=== PATIENT | male | born 1950 | race Caucasian/White ===

== ENCOUNTER 2016-11-26 22:08 | Outpatient (CLI) | payer MEDICARE, OTHER | END 2016-11-26 22:09 | disposition critical access hospital (66) | LOC: EMS 22:08 | PROVIDERS: ATTEND Surgery | DX: R10.2 Pelvic and perineal pain (principal); V28.4XXA Motorcycle driver injured in noncollision transport accident in traffic accident, initial encounter; Y92.410 Unspecified street and highway as the place of occurrence of the external cause | CPT/HCPCS: A0425; A0429 ==

== ENCOUNTER 2016-11-26 23:09 | Emergency (ER) | payer MEDICARE, OTHER ==
--- NOTE | 2016-11-26 23:47 | XRAY Preliminary Report ---
Exam: XR HIP W/PELVIS 2-3V LT IMPRESSION: Normal pelvis and hip radiography. [facility] SITE ID: [id number]
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
[2016-11-27] MEDS ORDERED: KETOROLAC 60 MG/2 ML VIAL IM STA (00:33)
[2016-11-27 00:37] VITALS: BP 130/92
[2016-11-27] MEDS ORDERED: KETOROLAC 60 MG/2 ML VIAL ONE (00:41)
== END 2016-11-27 00:35 | disposition home or self-care (01) ==
LOC: EDUNIT# → ED 23:09
DX: M53.3 Sacrococcygeal disorders, not elsewhere classified (principal); V28.4XXA Motorcycle driver injured in noncollision transport accident in traffic accident, initial encounter; Y92.488 Other paved roadways as the place of occurrence of the external cause; I10 Essential (primary) hypertension; E78.00 Pure hypercholesterolemia, unspecified; I20.9 Angina pectoris, unspecified; K74.60 Unspecified cirrhosis of liver
CPT/HCPCS: 96372; 99283

== ENCOUNTER 2019-10-15 14:13 | Outpatient (CLI) | payer MEDICARE | END 2019-10-15 14:14 | disposition home or self-care (01) | LOC: COV 14:13 | PROVIDERS: ATTEND Family Medicine | DX: R50.9 Fever, unspecified (principal); M79.10 Myalgia, unspecified site; R53.83 Other fatigue; R19.7 Diarrhea, unspecified; R09.81 Nasal congestion; Z20.828 Contact with and (suspected) exposure to other viral communicable diseases ==

== ENCOUNTER 2019-10-16 12:36 | Emergency (ER) | payer MEDICARE ==
[2019-10-16 12:54] VITALS: BP 145/81
[2019-10-16 13:13] LABS: BILIRUBIN,URINE NEGATIVE (NEGATIVE); GLUCOSE, URINE (UA) NEGATIVE (NEGATIVE); KETONES,URINE (UA) NEGATIVE (NEGATIVE); LEUKOCYTE ESTERASE, URINE LARGE (NEGATIVE); NITRITE,URINE POSITIVE (NEGATIVE); OCCULT BLOOD,URINE LARGE (NEGATIVE); PROTEIN,URINE 30 mg/dL (NEGATIVE); UROBILINOGEN,URINE 1 (NORMAL) E.U./dL (NORMAL)
[2019-10-16 13:14] LABS: CLARITY,URINE CLOUDY (CLEAR)
[2019-10-16 13:19] LABS: BACTERIA,URINE Few /HPF (None Seen); RBC,URINE TNTC /HPF (0-5); SQUAMOUS EPITHELIAL CELL,UR NONE SEEN (<= Few)
[2019-10-16] MEDS ORDERED: LIDOCAINE 1% 2 ML VIAL MC ONE (13:23)
[2019-10-16] MEDS ORDERED: cefTRIAXone 1 GM VIAL IM STA (13:23)
--- NOTE | 2019-10-16 13:28 | ED Physician Documentation ---
History of Present Illness - Stated complaint Stated Complaint: MALE - Chief complaint Chief Complaint: General - History obtained from History obtained from: Patient - History of Present Illness Timing: How many weeks ago (1) Pain level max: 4 Pain level now: 3 - Additonal information Additional information: 69-year-old male with dysuria and urine frequency for the past week. Feels like he cannot completely empty his bladder. Has had occasional chills. Some nausea but no vomiting. He has had a bladder stone removed in the past. No back pain. No abdominal pain. Worse with urination, nothing makes it better. Review of Systems Constitutional: denies: Fever, Chills GI: denies: Vomiting, Diarrhea Skin: denies: Rash Musculoskeletal: denies: Neck pain, Back pain PD PAST MEDICAL HISTORY - Past Medical History Cardiovascular: Hypertension, High cholesterol, Angina Respiratory: Shortness of breath Endocrine/Autoimmune: None GI: Cirrhosis : None HEENT: Chronic vision loss, Chronic hearing loss Psych: None Musculoskeletal: None Derm: None - Past Surgical History Past Surgical History: Yes General: Liver surgery HEENT: Tonsil/Adenoidectomy Derm: Skin cancer surgery - Present Medications Home Medications: Ambulatory Orders Medication Instructions Recorded Confirmed Furosemide [Lasix] 40 mg PO BID #14 tablet 10/28/14 Furosemide [Lasix] 40 mg PO DAILY 10/28/14 10/28/14 Ledipasvir/Sofosbuvir [Harvoni 1 tab PO DAILY 10/28/14 10/28/14 90-400 mg Tablet] Ribavirin 600 mg PO DAILY 10/28/14 10/28/14 Spironolactone 100 mg PO DAILY 10/28/14 10/28/14 Cefdinir 300 mg PO BID #20 capsule 10/16/19 - Allergies Allergies/Adverse Reactions: Allergies Allergy/AdvReac Type Severity Reaction Status Date / Time amoxicillin AdvReac Emesis Verified 10/16/19 12:54 - Social History Does the pt smoke?: No Smoking Status: Never smoker Does the pt drink ETOH?: No Does the pt have substance abuse?: No - Immunizations Immunizations are current?: Yes - POLST Patient has POLST: No PD ED PE NORMAL - Vitals Vital signs reviewed: Yes - General General: Alert and oriented X 3, No acute distress - HEENT HEENT: Moist mucous membranes - Neck Neck: Supple, no meningeal sign - Cardiac Cardiac: RRR, Strong equal pulses - Respiratory Respiratory: No respiratory distress, Clear bilaterally - Abdomen Abdomen: Soft, Non tender, Non distended - Male Male : Other (Normal prostate exam. No tenderness or bogginess. Otherwise normal exam) - Back Back: No CVA TTP, No spinal TTP - Derm Derm: Warm and dry - Neuro Neuro: Alert and oriented X 3 - Psych Psych: Normal mood, Normal affect Results - Vitals Vitals: Vital Signs - 24 hr 10/16/19 12:48 Temperature 37.1 C Heart Rate 87 Respiratory 20 Rate Blood Pressure 145/81 H O2 Saturation 96 Oxygen O2 Source Room air - Labs Labs: Laboratory Tests 10/16/19 13:06 Urine Color YELLOW Urine Clarity CLOUDY Urine pH 6.0 Ur Specific [place] 1.025 Urine Protein 30 H Urine Glucose (UA) NEGATIVE Urine Ketones NEGATIVE Urine Occult Blood LARGE H Urine Nitrite POSITIVE H Urine Bilirubin NEGATIVE Urine Urobilinogen 1 (NORMAL) Ur Leukocyte Esterase LARGE H Urine RBC TNTC H Urine WBC >25 H Ur Squamous Epith Cells NONE SEEN Urine Bacteria Few Ur Microscopic Review INDICATED Urine Culture Comments INDICATED PD MEDICAL DECISION MAKING - ED course Complexity details: reviewed results, re-evaluated patient, considered differential, d/w patient ED course: Patient with a UTI. Also has a 2 cm bladder stone on the. We will place him on antibiotics and have him follow-up closely with his urologist. He has had a bladder stone removed in the past. Patient is well-appearing, nontoxic. Afeb rile. No evidence of sepsis. Patient counseled regarding signs and symptoms for which I believe and urgent re-evaluation would be necessary. Patient with good understanding of and agreement to plan and is comfortable going home at this time This document was made in part using voice recognition software. While efforts are made to proofread this document, sound alike and grammatical errors may o ccur. Departure - Departure Disposition: 01 Home, Self Care Clinical Impression: Bladder stone UTI (urinary tract infection) Qualifiers: Urinary tract infection type: acute cystitis Hematuria presence: with hematuria Qualified Code(s): N30.01 - Acute cystitis with hematuria Condition: Good Instructions: ED UTI Cystitis Male Follow-Up: your,doctor in 1 week [Other] Prescriptions: Cefdinir 300 mg PO BID #20 capsule Comments: Take all antibiotics until gone. Return if you worsen. Return especially for fevers, vomiting or any other new or worsening symptoms. You need to see urology to have a bladder stone removed. It is approximately 2 cm. Discharge Date/Time: 10/16/19 13:36
== END 2019-10-16 13:36 | disposition home or self-care (01) ==
LOC: ED 12:36
DX: N30.01 Acute cystitis with hematuria (principal); N21.0 Calculus in bladder
CPT/HCPCS: 81001; 81003; 87086; 87181; 96372; 99283; 99284

== ENCOUNTER 2019-12-28 18:30 | Outpatient (CLI) | payer MEDICARE | END 2019-12-28 18:31 | disposition home or self-care (01) | LOC: COV 18:30 | PROVIDERS: ATTEND Family Medicine | DX: Z20.828 Contact with and (suspected) exposure to other viral communicable diseases (principal) ==

== ENCOUNTER 2021-02-17 01:21 | Emergency (ER) | payer MEDICARE ==
--- NOTE | 2021-02-17 01:32 | ED Physician Documentation ---
PD HPI HEADACHE - Stated complaint Stated Complaint: GORDON, CONGESTION - Chief complaint Chief Complaint: General - History obtained from History obtained from: Patient - History of Present Illness Timing - onset: Yesterday Timing - details: Gradual onset Pain level now: 5 Location: Global Associated symptoms: Fever (Tmax 100.1). No: Nausea, Vomiting, Weakness Contributing factors: No: Anticoagulated, Possible carbon monoxide Similar symptoms before: Has not had sx before Recently seen: Not recently seen - Additional information Additional information: c/o 24 hours of gradual onset, gradually worsening generalized headache, chest congestion, moist cough. Tmax 100.1 He is COVID vaccinated but has not received a booster shot Review of Systems Constitutional: reports: Fever (Tmax 100.1), Fatigue Throat: denies: Sore throat Cardiac: reports: Reviewed and negative Respiratory: reports: Cough. denies: Dyspnea, Hemoptysis, Wheezing GI: reports: Reviewed and negative Neurologic: reports: Headache. denies: Generalized weakness, Focal weakness, Numbness PD PAST MEDICAL HISTORY - Past Medical History Cardiovascular: Hypertension, High cholesterol, Angina Respiratory: Shortness of breath Endocrine/Autoimmune: None GI: Cirrhosis : None HEENT: Chronic vision loss, Chronic hearing loss Psych: None Musculoskeletal: None Derm: None - Past Surgical History Past Surgical History: Yes General: Liver surgery HEENT: Tonsil/Adenoidectomy Derm: Skin cancer surgery - Present Medications Home Medications: Ambulatory Orders Medication Instructions Recorded Confirmed Furosemide [Lasix] 40 mg PO BID #14 tablet 10/28/14 Furosemide [Lasix] 40 mg PO DAILY 10/28/14 10/28/14 Ledipasvir/Sofosbuvir [Harvoni 1 tab PO DAILY 10/28/14 10/28/14 90-400 mg Tablet] Ribavirin 600 mg PO DAILY 10/28/14 10/28/14 Spironolactone 100 mg PO DAILY 10/28/14 10/28/14 Cefdinir 300 mg PO BID #20 capsule 10/16/19 - Allergies Allergies/Adverse Reactions: Allergies Allergy/AdvReac Type Severity Reaction Status Date / Time amoxicillin AdvReac Emesis Verified 02/17/21 01:31 - Social History Does the pt smoke?: No Smoking Status: Never smoker Does the pt drink ETOH?: No Does the pt have substance abuse?: No - Immunizations Immunizations are current?: Yes - POLST Patient has POLST: No PD ED PE NORMAL - Vitals Vital signs reviewed: Yes - General General: Alert and oriented X 3, No acute distress, Well developed/nourished - HEENT HEENT: PERRL, EOMI - Neck Neck: Supple, no meningeal sign - Cardiac Cardiac: RRR, No murmur - Respiratory Respiratory: No respiratory distress, Clear bilaterally - Neuro Neuro: Alert and oriented X 3, dermatology specialist 2-12 intact, No motor deficit, No sensory deficit, Normal speech Eye Opening: Spontaneous Motor: Obeys Commands Verbal: Oriented GCS Score: 15 Results - Vitals Vitals: Vital Signs - 24 hr 02/17/21 02/17/21 01:25 03:00 Temperature 37.2 C 37.2 C Heart Rate 97 81 Respiratory 18 16 Rate Blood Pressure 182/96 H 158/88 H O2 Saturation 95 98 Oxygen O2 Source Room air - Rads (name of study) chest xray Radiology: Prelim report reviewed, See rad report PD MEDICAL DECISION MAKING - ED course Complexity details: reviewed results, re-evaluated patient, considered differential, d/w patient ED course: presents with moist cough, generalized headache. Appears well on exam with normal vital signs (except mildly hypertensive). Lungs CTA bilaterally and CXR unremarkable. COVID test pending but advised to stay home until results available and will need appropriate extension of time off from work if result is positive. Departure - Departure Disposition: 01 Home, Self Care Clinical Impression: Bronchitis Condition: Good Instructions: ED Upper Resp Infec No Abx Tx Comments: Your chest xray does not show evidence of pneumonia; your symptoms are consistent with bronchitis ("chest cold"), which typically does not show on chest xray. Your COVID test result should be available in 2 days. If it is positive, you will need more time off than I have written on the work excuse; if you have a positive result, contact your primary care provider to discuss timing of reevaluation as well as assessment for more time off for proper quarantine/isolation. If your result is negative and you are feeling well, you can return to work Saturday as per the work note provided. You have a Covid test pending. You need to self quarantine until the result is done and negative. Do not leave your house. Do not get near anybody. The results should be done in 48 to 72 hours. We will call with a positive result, the fastest way to get a negative result for confirmation though is to go to the hospital website at [email or web address], click on the my [employer] tab and sign up for the patient portal. If any friends or family get sick and would like to have a Covid test done, but do not have signs or symptoms that would necessitate being hospitalized, we encourage testing through our coronavirus swabbing station, call [phone] to schedule an appointment. Forms: Activity restrictions Discharge Date/Time: 02/17/21 03:03
[2021-02-17 03:03] VITALS: BP 158/88
--- NOTE | 2021-02-17 08:01 | XRAY Report ---
PROCEDURE: Chest 2 View X-Ray INDICATIONS: cough, dyspnea TECHNIQUE: 2 view(s) of the chest. COMPARISON: None. FINDINGS: Surgical changes and devices: None. Lungs and pleura: No pleural effusions or pneumothorax. Lungs are clear. Mediastinum: Mediastinal contours are normal. Heart size is normal. Bones and chest wall: No suspicious bony abnormalities. Soft tissues appear unremarkable. IMPRESSION: No acute pulmonary process. The above findings are concordant with preliminary report. Reviewed by: Virginia Farley MD on 02/17/2021 8:00 AM [facility] Approved by: Virginia Farley MD on 02/17/2021 8:00 AM [facility] Station ID: [id number]
== END 2021-02-17 03:03 | disposition home or self-care (01) ==
LOC: ED 01:21
DX: U07.1 COVID-19 (principal); J40 Bronchitis, not specified as acute or chronic; I10 Essential (primary) hypertension
CPT/HCPCS: 71046; 99282; 99284; U0004

== ENCOUNTER 2021-03-01 08:00 | Outpatient (CLI) | payer MEDICARE | END 2021-03-01 23:59 | LOC: LAB.S 08:00 | PROVIDERS: ATTEND Emergency Medicine | DX: U07.1 COVID-19 (principal) ==